=== PATIENT | male | born 1940 | race Caucasian/White ===

== ENCOUNTER 2017-02-04 10:17 | Outpatient (CLI) | payer OTHER ==
[~2017-02-04 10:17] MED LIST: ALFUZOSIN HCL E10 MG PO; ATORVASTATIN CA10 MG PO; FINASTERIDE5 MG PO; LISINOPRIL10 MG PO; METFORMIN HCL500 MG PO
--- NOTE | 2017-02-04 17:17 | DIAGNOSTIC IMAGING REPORT ---
PROCEDURE: US ECHOCARDIOGRAM INDICATION: Aortic valve stenosis TECHNIQUE: Technically adequate study. The patient in sinus rhythm. COMPARISON: None FINDINGS: Left ventricle: Normal size. Mild concentric left ventricular hypertrophy. Normal left ventricular ejection fraction and 60-65%. Normal wall motion. Diastolic function appears normal. Right ventricle: Normal size and function. Left atrium mildly dilated. Right atrium normal size. Aortic valve: Trileaflet with moderate sclerosis. There is mild stenosis. P gradient 17 mmHg, mean gradient 10 mmHg and calculated valve area of 1.5 cm2. Mitral valve normal in structure and function with trace insufficiency. Tricuspid valve: Normal in structure and function with trace insufficiency. Pulmonic valve: Normal in structure and function with trace insufficiency. Aorta ascending aorta minimally dilated of 3.8 cm Pericardium: No effusion Hemodynamics: Pulmonary artery pressure cannot be estimated accurately due to insufficient tricuspid regurgitation. IMPRESSION: Normal left ventricular ejection fraction Normal diastolic function Moderate aortic valve sclerosis with mild stenosis. Minimally dilated ascending aorta at 3.8 cm.
== END 2017-02-04 23:00 ==
LOC: US SRH 10:17
DX: I35.0 Nonrheumatic aortic (valve) stenosis (principal)